=== PATIENT | female | born 1980 | race Caucasian/White ===

== ENCOUNTER 2017-11-22 20:13 | Emergency (ER) | payer OTHER ==
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
[2017-11-22] MEDS ORDERED: HYDR2TAB74 PO (20:43)
[2017-11-22] MEDS ORDERED: HYDROmorphone 2 MG TAB TH 2 TAB/BOTTLE PO ONE (20:45)
[2017-11-22 20:53] VITALS: BP 132/85
--- NOTE | 2017-11-22 20:57 | RADIOLOGY IMAGING REPORT ---
FACILITY: [facility] PATIENT NAME: Shelly Mcduffie : 1980 MR: [id number] V: [id number] EXAM DATE: ORDERING PHYSICIAN: MICHAEL HOOK TECHNOLOGIST: Location: [facility] Patient: Shelly Mcduffie : 1980 Visit/Account:[id number] Date of Sevice: 11/22/2017 ANKLE 3 VIEW MIN LEFT Indication: Left ankle pain after fall during roller derby. Comparison: None Available Findings: 3 views of the left ankle. There is oblique fracture distal left fibula with minimal distraction. Syn desmosis appears to be intact. There may be a tiny avulsion off the posterior distal tibia. No other indication of fracture. No dislocation or bony lesion. Soft tissues show mild swelling without radiop aque foreign body. IMPRESSION: 1. Distal left fibular fracture. There may be a small avulsion off the posterior malleolus. Report Dictated By: Jorgito Shepard at 11/22/2017 8:49 PM Report E-Signed By: Jorgito Shepard at 11/22/2017 8:52 PM WSN:[id number]
== END 2017-11-22 21:00 | disposition home or self-care (01) ==
LOC: ER 20:16
DX: S82.832A Other fracture of upper and lower end of left fibula, initial encounter for closed fracture (principal)
CPT/HCPCS: 73610; 99283; A9270

== ENCOUNTER 2018-03-09 16:15 | Outpatient (RCR) | payer OTHER ==
--- NOTE | 2018-01-26 12:28 | PT INITIAL EVALUATION ---
MEDICAL DIAGNOSIS: Closed Displaced fracture or L Lateral Malleolus, Aftercare Surgery TREATMENT DIAGNOSIS: Closed Displaced fracture or L Lateral Malleolus, Aftercare Surgery DATE OF ONSET: 11/23/17 SUBJECTIVE: Shelly is a 37 year old female presenting to physical therapy following left fibular fracture while playing [employer]. Fracture occurred November 23, 2017 and pt underwent surgery resulting in the placement of a plate and screws on November 30 following decreased swelling. Pt was placed on a hands- free knee crutch while in a boot and was Non-WB following surgery. Pt was released to WB status on January 14 and reports that initially she over exerted herself, but is now doing better. Pt currently reports no pain, but occasionally has throbbing or achy pain at the end of the day at 4/10 at worst. Pt is currently performing pool exercises, and endurance training via biking and rowing on her own as well as managing swelling with ice and elevation in the evenings. Pt walks frequently for work and has no difficulty at this time other than achiness at the end of the day. 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 ROM: Ankle ROM (degrees): DF: R 7, L 5, PF: R 60, L 55, Inv: R 42, L 31, Evr: R 21, L 21. Knee and Hip full ROM B. Strength: Ankle MMT: DF: R 5/5, L 4/5, PF: R 5/5, L 4+/5, Inv: R 5/5, L 4+/5, Evr: R 5/5, L 4+/5 Palpation: Pt has slight tenderness to palpation along medial malleolus. Sensation: Sensation intact to light touch. Mobility: Pt has decreased joint mobility throughout the L ankle with significant restrictions in the talocrural joint as well as the medial midfoot. Gait: Pt ambulates with normal stride length and foot clearance with slight decreased push off on L side. ASSESSMENT: Pt shows signs and symptoms consistent with recent L fibular malleolar fracture with surgical intervention. Physical therapy is indicated for this patient to address the above listed deficits and return patient to prior level of function in ADL's and recreational activities. Short Term Goals In 2 weeks pt will have equal ROM compared to the contralateral ankle in all motions for improved function with ADL's. In 4 weeks pt will increase L ankle strength as tested by MMT to equal to that of the contralateral ankle for improved function with ADL's. In 6 weeks pt will be able to perform sport specific activities such as running and jumping for improved function with ADL's and return to recreational activities. Patient's Goals Return to volleyball and [employer]. PLAN: Patient to be seen for Manual Therapy/STM/MET Strengthening/condition Ice/Heat Range of Motion Ultrasound Stretching Iontophoresis Neuromuscular Re-ed Closed Chain Program Electrical Stim Posture/Body mechanics Gait Trg/Balance Trg Biofeedback Home Exercise Program Mech./Manual Traction Therapeutic Activities 3x/Week for 6 Weeks If you have any questions, comments, or concerns about this report or plan, please contact me at . Thank you, Pallavi Wheatley, PT, DPT, CLT MOLLY
--- NOTE | 2018-02-22 17:06 | PT PLAN OF CARE ---
Physician: Jakub Soto MD Patient is being seen: 3x/Week Therapist: Pallavi Wheatley, PT, DPT, CLT Medical Diagnosis: Closed Displaced fracture or L Lateral Malleolus, Aftercare Surgery Treatment Diagnosis: Closed Displaced fracture or L Lateral Malleolus, Aftercare Surgery Date of Onset: 11/23/17 Date of Initial Evaluation: 01/25/18 Date patient was last seen: 02/18/18 Number of treatments: 10 Number of cancellations/No shows: 0 INTERVENTIONS: Manual Therapy/STM/MET Strengthening/condition Ice/Heat Range of Motion Ultrasound Stretching Iontophoresis Neuromuscular Re-ed Closed Chain Program Electrical Stim Posture/Body mechanics Gait Trg/Balance Trg Biofeedback Home Exercise Program Mech./Manual Traction Therapeutic Activities GOALS: In 2 weeks pt will have equal ROM compared to the contralateral ankle in all motions for improved function with ADL's. MET In 4 weeks pt will increase L ankle strength as tested by MMT to equal to that of the contralateral ankle for improved function with ADL's. In Progress In 6 weeks pt will be able to perform sport specific activities such as running and jumping for improved function with ADL's and return to recreational activities. In Progress PATIENT'S GOAL: Return to volleyball and roller [employer]. Status of Patient's Goals:1/3 MET, 2/3 In Progress Patient Compliance: Excellent Prognosis: Excellent Reasons for continuing therapy: Shelly continues to show excellent progress with ankle mobility and strength. Pain has been improving but is dependent upon healing status of posterior tibialis tendinopathy which developed secondary to over use with initial progression away from boot immobilizer. At this time pain is low when present and pt shows improved use of posterior tibialis with eccentrics and with arch support to decrease fatigue. Pt shows progression toward dynamic activities for return to sport including B LE jumping and hopping progressing towards more unilateral dynamic activities and running. Further PT is indicated for this patient to continue strength and stability for return to full function in ADL's and recreational activities. ROM: Ankle ROM (degrees): DF: R 7, L 7, PF: R 60, L 60, Inv: R 42, L 41, Evr: R 21, L 21. Knee and Hip full ROM B. Strength: Ankle MMT: DF: R 5/5, L 4+/5, PF: R 5/5, L 4+/5, Inv: R 5/5, L 4+/5, Evr: R 5/5, L 4+/5 Palpation: Pt has slight tenderness to palpation along medial malleolus. Special Tests: Star Excursion: 5-10 cm difference in lateral and anterior directions Mobility: Pt has minimal restrictions remaining in the talocrural joint If you have any questions or concerns, please feel free to contact me at . Thank you, Pallavi Wheatley, PT, DPT, CLT MTDD
[~2018-03-09 16:15] MED LIST: HYDR2TAB74 PO
--- NOTE | 2018-03-09 17:15 | PT PLAN OF CARE ---
Physician: Jakub Soto MD Patient is being seen: 2-3x/Week Therapist: Pallavi Wheatley, PT, DPT, CLT Medical Diagnosis: Closed Displaced fracture or L Lateral Malleolus, Aftercare Surgery Treatment Diagnosis: Closed Displaced fracture or L Lateral Malleolus, Aftercare Surgery Date of Onset: 11/23/17 Date of Initial Evaluation: 01/25/18 Date patient was last seen: 03/09/18 Number of treatments: 15 Number of cancellations/No shows: 0 INTERVENTIONS: Manual Therapy/STM/MET Strengthening/condition Ice/Heat Range of Motion Ultrasound Stretching Iontophoresis Neuromuscular Re-ed Closed Chain Program Electrical Stim Posture/Body mechanics Gait Trg/Balance Trg Biofeedback Home Exercise Program Mech./Manual Traction Therapeutic Activities GOALS: In 2 weeks pt will have equal ROM compared to the contralateral ankle in all motions for improved function with ADL's. MET In 4 weeks pt will increase L ankle strength as tested by MMT to equal to that of the contralateral ankle for improved function with ADL's. MET In 6 weeks pt will be able to perform sport specific activities such as running and jumping for improved function with ADL's and return to recreational activities. MET PATIENT'S GOAL: Return to volleyball and roller derby. Status of Patient's Goals:3/3 MET Patient Compliance: Excellent Prognosis: Excellent Reasons for discharge from therapy: Shelly is to discharge from physical therapy at this time secondary to completion of all of her functional goals. Shelly shows good progress with strengthening and stability of the ankle with full return to recreational, occupational and daily activities. Pt has minimal lingering edema at the talar junction which will be independently managed upon discharge with elevation, ice, ankle mobility. At the time of discharge pt showed full ankle ROM and strength equal to that of the contralateral side. Pt is to continue with independent HEP upon discharge without restrictions of return to recreational sports. ROM: Ankle ROM (degrees): DF: R 7, L 7, PF: R 60, L 60, Inv: R 42, L 41, Evr: R 21, L 21. Knee and Hip full ROM B. Strength: Ankle MMT: all motions 5/5 Special Tests: Star Excursion: Equal B Mobility: Pt has minimal restrictions remaining in the talocrural joint If you have any questions or concerns, please feel free to contact me at . Thank you, Pallavi Wheatley, PT, DPT, CLT MTDD
== END 2018-03-09 18:00 | disposition home or self-care (01) ==
LOC: PT 16:15
PROVIDERS: ATTEND Orthopaedic Surgery Orthopaedic Trauma
DX: Z48.89 Encounter for other specified surgical aftercare (principal); S82.62XD Displaced fracture of lateral malleolus of left fibula, subsequent encounter for closed fracture with routine healing; V00.121D Fall from non-in-line roller-skates, subsequent encounter
CPT/HCPCS: 97161